=== PATIENT | female | born 1960 | race African-American/Black ===

== ENCOUNTER → 2017-11-01 | Outpatient (CLI) | payer OTHER ==
[2014-06-08 11:05] VITALS: BP 124/83
[~2017-11-01] MED LIST: ALEN70TA5 PO; CLON0.1T PO; CYANOCOBALAMIN PO; ERGO500027 PO; GABA-586 PO; HYDR25TA9 PO; MELO15TA23 PO; MULT1TAB52 PO; OXYC-323 PO; POTA10TA12 PO; TRAM50TA PO
--- NOTE | 2017-11-01 14:26 | PAIN ---
DATE OF SERVICE: 11/01/2017 PROGRESS NOTE FOR PAIN CLINIC DIAGNOSIS: Lumbar radiculopathy with lumbar degenerative disk disease. HISTORY OF PRESENT ILLNESS: The patient is a 57-year-old female who returns for followup, last seen in 04/2015. The patient did very well with lumbar epidural steroid injections with about an 80% improvement at that time. The patient reports pain is returning now in the low back and is primarily in the left lower extremity, but also in the right lower extremity at times, mostly in the posterior gluteus, posterior lateral thigh, lateral anterior thigh, lateral anterior lower legs bilaterally. The patient reports it is a 10 on a scale of 10 at its worst, 7-8 on its average, 3-4 at its least and is a 7 today. The patient reports it is radiating, constant, cramping, aching, sharp, tight, becoming more severe, more unbearable, and worse with walking, standing and changing positions, awakens her from sleep about 3-4 times at night. The patient reports it is becoming more noticeable over the past 2-3 months to the point where she is unable to get it to go away with resting and stretching. The patient did have some physical therapy exercises. She is doing some traction with physical therapy, which is helping while she is doing it, but afterwards, the pain returns fairly quickly within a day or so. The patient reports no new motor or sensory deficits, no new bowel or bladder incontinence or other complaints. PHYSICAL EXAMINATION: VITAL SIGNS: The patient's blood pressure is 150/89, pulse 68, respirations 18, temperature 97.7 degrees Fahrenheit, height is 5 feet 5 inches, weighs 209 pounds. GENERAL: The patient is awake, alert, oriented, appropriate, very pleasant demeanor. HEENT: Head shows normocephalic, atraumatic. Extraocular movements are intact and symmetrical. The patient wears eyeglasses. Oral cavity: Mucous membranes are moist and pink. Dentition is intact. NECK: Shows anterior throat supple without palpable lymphadenopathy noted. Swallow reflex is symmetrical. CHEST: Shows normal on inspection. Breath sounds are clear to auscultation bilaterally. HEART: Shows S1, S2 clear. No murmurs auscultated. ABDOMEN: Soft, nontender, nondistended. No palpable organomegaly is noted. No rebound or guarding demonstrated. BACK: Shows spine grossly in the midline. Normal appearing thoracic kyphosis and mild flattening of lumbar lordotic curvature. Lumbar paraspinous muscle shows symmetrical on inspection. On palpation, some moderate tenderness diffusely bilaterally without radiation. The patient has good rotational motion of lumbar spine, both laterally as well as extension and flexion without difficulty. No tenderness over the sacrum or sacroiliac regions over the spinous processes. EXTREMITIES: Lower extremities show deep tendon reflexes 1+ in the patellar and tendo calcaneus tendons, are equal. Motor exam is approximately 4 on a scale of 5 on the right and 5/5 on the left. Peripheral pulses are 1+ posterior tibia. No peripheral edema is noted. Options were discussed with the patient. The patient's old chart was reviewed as her current medication regimen updated. Current review of systems updated today as well. She does have an MRI scan from 2014 showing some significant findings at L4-L5 and L5-S1 with diffuse disk bulging and neural foraminal encroachment. The patient responded very well to lumbar epidural steroid injection in 04/2015. We discussed interventional techniques. She would like to pursue interventional techniques as we discussed a lumbar epidural steroid injection using descriptions as well as anatomical models to describe the procedure. The patient is in a [place] to visit her son who is having a bronchoscopy later today and would like to get to the facility where he is having this done as quickly as possible. We will have her reschedule in approximately 1 week and return for lumbar epidural steroid injection at that time. In the meantime, we prescribed a Medrol Dosepak and she was given instructions as well as side effects to be aware of with the medication and we will follow up in approximately 1 week and plan on lumbar epidural steroid injection on return. TROY CINTRON MD DR: JENNIFER/mayelin JOB#: [id number] / [id number]
== END | disposition home or self-care (01) ==
LOC: PNCL 10:03
PROVIDERS: ATTEND Anesthesiology
DX: M51.16 Intervertebral disc disorders with radiculopathy, lumbar region (principal); Z90.710 Acquired absence of both cervix and uterus; Z83.3 Family history of diabetes mellitus
CPT/HCPCS: 99212

== ENCOUNTER → 2017-11-16 | Outpatient (CLI) | payer OTHER ==
[2014-06-08 11:05] VITALS: BP 124/83
[~2017-11-16] MED LIST changes: +IOHEXOL 180 MG/ML 10 ML VIAL. ONE; +LIDOCAINE 2% PF 2ML VIAL. ONE; +MAGN400C PO; +VITAMIN B; +methylPREDNISolone ACETATE 40 MG/ML VIAL. ONE; +methylPREDNISolone ACETATE 80 MG/ML VIAL. ONE
--- NOTE | 2017-11-16 13:04 | PAIN ---
DATE OF SERVICE: 11/16/2017 PROGRESS NOTE FOR PAIN CLINIC DIAGNOSES: Lumbar radiculopathy with lumbar degenerative disk disease. HISTORY OF PRESENT ILLNESS: The patient is a 57-year-old female who returns for followup status post previous evaluation and returns today for lumbar epidural steroid injection. We tried Medrol Dosepak with her. She reports did help while she was taking it by about 80%, but wore off after about 4 days following the completion of it. The patient reports still pain in the low back and now into the left lower extremity, mostly in the posterior lateral gluteus, posterior thigh, lateral thigh, anterior thigh and also into the right lateral thigh. The patient reports it is an 8 on a scale of 10 at its worst, 6 on average, 5 at its least. She describes the pain as aching, sharp, tight, constant, becoming more severe, more unbearable, worse with weightbearing, changing positions, standing and walking. The patient reports it does not usually wake her up from sleep at night and she sleeps only about 4 to 5 hours at a time. The patient reports no new motor or sensory deficits, no new bowel or bladder incontinence or other complaints. PHYSICAL EXAMINATION: VITAL SIGNS: The patient's blood pressure 120/87, pulse 61, respirations 16, temperature 97.9 degrees Fahrenheit, weight is 205 pounds. GENERAL: The patient is awake, alert, oriented, appropriate, very pleasant demeanor. HEENT: Head shows normocephalic and atraumatic. Extraocular movements are intact and symmetrical. Oral cavity: Mucous membranes are moist and pink. Dentition is intact. NECK: Shows anterior throat is supple without palpable lymphadenopathy noted. Swallow reflex symmetrical. CHEST: Shows normal with inspection. Breath sounds are clear to auscultation bilaterally. HEART: Shows S1 and S2 clear. No murmurs are auscultated. ABDOMEN: Soft, nontender and nondistended. No palpable organomegaly is noted. No rebound or guarding demonstrated. BACK: Shows spine grossly in the midline. Normal appearing thoracic kyphosis and some mild flattening of the lumbar lordotic curvature. Lumbar paraspinous muscle shows symmetrical on inspection. With palpation shows some moderate tenderness only diffusely without radiation. The patient has good rotational motion of the lumbar spine both laterally as well as extension and flexion without difficulty. EXTREMITIES: Lower extremities show deep tendon reflexes at 1+ in the patellar and tendo calcaneus tendons are equal. Motor exam is approximately 4 on a scale of 5 with right dorsiflexion and extension and 5/5 on the left. Peripheral pulses are 1+ posterior tibial. No peripheral edema is noted bilaterally. Options were discussed with the patient. The patient's old chart was reviewed as was her current medication regimen updated. Current review of systems updated today as well. We will proceed with a lumbar epidural steroid injection today with fluoroscopic guidance. Risks were again discussed including, but not limited to bleeding, infection, possibility of epidural hematoma, subsequent neurologic compromise, dural puncture, headaches, spinal cord and/or nerve damage, side effects of steroid medication and poor results regarding pain control. The patient understands and wished to proceed. The patient will return to the clinic in approximately 2 weeks for followup, was counseled as to return appointment, activity level and side effects to be aware of. DIAGNOSIS: Lumbar radiculopathy with lumbar degenerative disk disease. PROCEDURE: Lumbar epidural steroid injection, translaminar approach L4-L5 level using C-arm fluoroscopic guidance under sterile prep and drape using local anesthetic. MEDICATION INJECTED: A total of 120 mg Depo-Medrol plus 10 mL of preservative-free normal saline and 2 mL of Isovue for contrast. CONDITION AT DISCHARGE: Stable. The patient tolerated the procedure well and had no complications. TROY CINTRON MD DR: JENNIFER/mayelin JOB#: [id number] / [id number]
== END | disposition home or self-care (01) ==
LOC: PNCL 10:41
PROVIDERS: ATTEND Anesthesiology
DX: M51.16 Intervertebral disc disorders with radiculopathy, lumbar region (principal); Z88.8 Allergy status to other drugs, medicaments and biological substances
CPT/HCPCS: 62323; J1030; J1040; J2001; Q9965

== ENCOUNTER → 2017-12-03 | Outpatient (CLI) | payer OTHER ==
[2014-06-08 11:05] VITALS: BP 124/83
[~2017-12-03] MED LIST changes: +LIDOCAINE 1% PF 2 ML VIAL. ONE; -LIDOCAINE 2% PF 2ML VIAL. ONE
--- NOTE | 2017-12-03 23:11 | PAIN ---
DATE OF SERVICE: 12/03/2017 DIAGNOSES: Lumbar radiculopathy with lumbar degenerative disk disease. HISTORY OF PRESENT ILLNESS: The patient is a 57-year-old female who returns for followup status post lumbar epidural steroid injection x 1. The patient reports about 80% improvement for the first 2 weeks or so. Pain began to return last week, but only very minimally in the low back and the bilateral lower extremities. The patient reports mainly the back is giving some trouble, slightly worse on the left than the right going to the left lower leg as well as some radiation in the anterior lower leg and ankle and foot. The patient reports the pain is a 10 on scale of 10 at its worst, 5-6 on average, 3-4 at its least and is a 4 today. The patient reports it is achy, sharp, tight, dull, alternating tingling, stabbing in the left leg radiating, becoming more constant with time or standing, walking, changing positions, better with sitting or lying down, does not awaken her from sleep at night, does not bother when she is sitting even for a prolonged period. The patient reports no new motor or sensory deficits, no new bowel or bladder incontinence or other complaints. PHYSICAL EXAMINATION: VITAL SIGNS: Today, blood pressure is 131/79, pulse 61, respirations 18, temperature 97.9 degrees Fahrenheit, height is 5 feet 5 inches, weight is 206 pounds. GENERAL: The patient is awake, alert, oriented, appropriate, very pleasant demeanor. HEENT: Head is normocephalic, atraumatic. Extraocular muscles are intact and symmetrical. Oral cavity: Mucous membranes moist and pink. Dentition is intact. NECK: Shows anterior throat supple without palpable lymphadenopathy noted. Swallow reflex symmetrical. CHEST: Shows normal with inspection. Breath sounds clear to auscultation bilaterally. HEART: Shows S1, S2 clear. No murmurs auscultated. ABDOMEN: Soft, nontender, nondistended. No palpable organomegaly is noted. No rebound or guarding demonstrated. BACK: Shows spine grossly in the midline. Normal appearing thoracic kyphosis and some minor flattening of lumbar lordotic curvature. Lumbar paraspinous muscle shows symmetrical on inspection, on palpation shows some mild tenderness diffusely bilaterally in the lower lumbar distribution but only diffusely. The patient has good rotational motion of lumbar spine, both laterally as well as extension and flexion without difficulty or pain reported. No tenderness over the sacrum or sacroiliac regions. EXTREMITIES: Lower extremities show deep tendon reflexes 1+ in the patellar and tendo-calcaneus tendons. Motor exam is approximately 4 on a scale of 5 on the right, 5/5 on the left. Peripheral pulses are 1+ posterior tibia. No peripheral edema is noted. Options were discussed with the patient. The patient's old chart was reviewed as well as his current medication regimen updated. Current review of systems updated today as well. We will proceed with a second in the series of lumbar epidural steroid injection today with fluoroscopic guidance. Risks were again discussed including, but not limited to bleeding, infection, possibility of epidural hematoma, subsequent neurological compromise, dural puncture, headaches, spinal cord and/or nerve damage, side effects of steroid medication and poor results regarding pain control. The patient understands and wished to proceed. The patient will return to clinic in approximately 2 weeks for followup. She was counseled on return appointment, activity level and side effects to be aware of. DIAGNOSES: Lumbar radiculopathy with lumbar degenerative disk disease. PROCEDURE: Lumbar epidural steroid injection, translaminar approach L4-L5 level using C-arm fluoroscopic guidance under sterile prep and drape using local anesthetic. MEDICATION INJECTED: A total of 120 mg Depo-Medrol plus 10 mL of preservative-free normal saline and 2 mL of Isovue for contrast. CONDITION AT DISCHARGE: Stable. The patient tolerated procedure well, had no complications. TROY CINTRON MD DR: JENNIFER/mayelin JOB#: [id number] / [id number]
== END | disposition home or self-care (01) ==
LOC: PNCL 10:13
PROVIDERS: ATTEND Anesthesiology
DX: M51.16 Intervertebral disc disorders with radiculopathy, lumbar region (principal); Z88.8 Allergy status to other drugs, medicaments and biological substances
CPT/HCPCS: 62323; J1030; J1040; Q9965

== ENCOUNTER → 2019-09-25 | Outpatient (CLI) | payer OTHER ==
[2014-06-08 11:05] VITALS: BP 124/83
[~2019-09-25] MED LIST changes: +ACET325T21 PO; -ALEN70TA5 PO; +ALEN70TA6 PO; +ASPI-630 PO; +DICL100G54 TP; -GABA-586 PO; +GABA300C18 PO; +HYDR-2145 PO; -HYDR25TA9 PO; -LIDOCAINE 1% PF 2 ML VIAL. ONE; +MULT-445 PO; -MULT1TAB52 PO; -OXYC-323 PO; +OXYC1TAB15 PO; -POTA10TA12 PO; +POTA20TA4 PO; +POTASSIUM CHLO10 ME1 PO; +black seed oil
--- NOTE | 2019-09-25 09:56 | PDOC ---
Progress Note - Pain Clinic Date of Service: DOS: DATE: 09/25/19 TIME: 09:50 Diagnosis: Dx: Lumbar disc left with lumbar degenerative disc disease History or Present Illness: HPI: Mrs. Fredo Harris a 5-year-old female turns follow-up status post lumbar procedure injection last seen December 03, 2017 with good results about 75 to 80% improvement but the pain only lasting for about 1 to 2 months. Patient reports pain is returning now over the past 6 months or so after she was traveling on a missionary trip pain began return in the low back and left lower extremity most in the posterior gluteus posterior lateral thigh and anterior thigh and calf occasionally. Patient reports the pain is worse with walking standing change positions also with colder weather it is been more noticeable. Patient rates her pain as a 9 on a scale of 10 is worst 8 on average 5 at its least and is a 5 today patient reports is in the low back rating the left lower extremities noted described as constant severe at times unbearable stabbing tight in the back as well worse with rotation of motion extension lumbar spine as well as with walking standing changing positions awaken her from sleep about every 6 hours. Patient reports no new motor or sensory deficits no new bowel or bladder incontinence or other complaints. She did have a new MRI scan lumbar spine dated April 10, 2019 showing hypertrophic degenerative facet changes at L5-S1 mild thickening ligamentum flavum and symmetric bulging of the annulus L4-5 and symmetric bulging broad-based of the disc at L5-S1. Patient reports no new motor or sensory deficits no new bowel or bladder incontinence or other complaints. Physical Exam: VS: Blood pressure 147/91 pulse 71 respiration 16 temperature is 98.0 degrees urine fight is 5 foot 5 and half inches weight is 206 pounds PE: PHYSICAL EXAMINATION: GENERAL: The patient is awake, alert, oriented, appropriate, very pleasant demeanor HEENT: Shows normocephalic, atraumatic. Extraocular movements are intact and symmetrical. Oral cavity: Mucous membranes moist and pink. Dentition is intact. NECK: Shows anterior throat supple without palpable lymphadenopathy noted. Swallow reflex symmetrical. CHEST: Shows normal on inspection. Breath sounds are clear bilaterally. HEART: Shows S1, S2 clear. No murmurs auscultated. ABDOMEN: Soft, nontender, nondistended. No palpable organomegaly is noted. No rebound or guarding demonstrated. BACK: Shows spine grossly in the midline. Normal-appearing cervical lordotic curvature. There is slightly increased thoracic kyphosis, some minor flattening of the lumbar lordotic curvature. Lumbar paraspinous muscles show symmetrical on inspection, on palpation shows some moderate tenderness diffusely throughout the upper, middle and lower distribution of the paraspinous muscles bilaterally, but without specific trigger points, without radiation of pain. The patient has good rotational motion of the lumbar spine, both laterally as well as extension and flexion without significant difficulty. No tenderness over the spinous processes, sacrum or sacroiliac regions. EXTREMITIES: Lower extremities show deep tendon reflexes 1+ in the patellar and tendo calcaneus tendons. Motor exam is 4 on a scale of 5 with right dorsiflexion, extension, quadriceps and hamstring flexion and 5/5 on the left. Peripheral pulses are 1+ posterior tibial. No peripheral edema is noted b ilaterally. Lower extremities are warm and dry to touch, equal in color and appearance. Straight leg raise noted to be positive on the right about 35 degrees, left side is negative. Gaenslen's and Too's maneuvers are negative as well. The patient is able to stand stand on her toes walks with a slight favoring gait favoring the right lower extremity but not use any assistive devices to ambulate.. SKIN: Shows warm and dry, good turgor. No edema. No sores, rashes or bruising throughout. Options were discussed with the patient. The patient's old chart was reviewed and current medication regimen updated. [] Procedure: Procedure: Options were discussed with the patient. Patient's old chart was reviewed her current medication regimen updated current review of systems updated today as well and we will proceed with the lumbar epidural steroid injection. Risks are discussed including but not limited to bleeding infection possibility of epidural hematoma and subsequent neurological compromise dural puncture headache spinal cord and or nerve damage side effects of steroid medication importance of going pain control. Patient understands wishes to proceed. Patient return to clinic in approximately 2 weeks for follow-up. Procedure is lumbar epidural steroid injection under local anesthetic using sterile prep and drape at the L4-5 level using C-arm fluoroscopic guidance in both AP and lateral views medications injected is 120 mg Depo-Medrol +[]mL preservative-free normal saline and 2 mL Isovue for contrast- condition at discharge is stable patient tolerated procedure well had no complications. Medication Injected: Med Injected: 10 cc preservative-free normal saline +120 mg Depo-Medrol +2 cc contrast Condition at Discharge: Condition at Discharge: Patient tolerated procedure well had no complications. TROY CINTRON MD Sep 25, 2019 09:56
== END | disposition home or self-care (01) ==
LOC: PNCL 08:49
PROVIDERS: ATTEND Anesthesiology
DX: M51.16 Intervertebral disc disorders with radiculopathy, lumbar region (principal); Z79.82 Long term (current) use of aspirin; Z79.899 Other long term (current) drug therapy; Z88.8 Allergy status to other drugs, medicaments and biological substances
CPT/HCPCS: 62323; J1030; J1040; Q9965

== ENCOUNTER → 2019-10-09 | Outpatient (CLI) | payer OTHER ==
[2014-06-08 11:05] VITALS: BP 124/83
--- NOTE | 2019-10-09 09:40 | PDOC ---
Progress Note - Pain Clinic Date of Service: DOS: DATE: 10/09/19 TIME: 09:37 Diagnosis: Dx: Lumbar radiculopathy with lumbar degenerative disc disease and lumbar spondylosis History or Present Illness: HPI: 59-year-old female returns to follow-up status post lumbar epidural steroid injection x1 patient reports only about 20% improvement in her low back and left lower extremity pain. Patient reports pain is still across the low back into the left leg posterior gluteus lateral thigh anterior thigh medial thigh mostly across the back however patient which is aching and tingling constant can be unbearable at times worse with standing walking changing positions rates the pain is a 9 on scale 10 is worse over the past week 6 on average 6 at its least is a 6 today patient reports no new motor or sensory deficits no new bowel or bladder incontinence or other complaints. Patient ports been awakened from sl eep at night also has secondary complaint of right shoulder pain at the acromioclavicular joint worse with sleeping over the past 3 days. Physical Exam: VS: Blood pressure is 151/92 pulse 63 respirations 18 temperature 98.4 F weight is 207 pounds PE: PHYSICAL EXAMINATION: GENERAL: The patient is awake, alert, oriented, appropriate, very pleasant demeanor HEENT: Shows normocephalic, atraumatic. Extraocular movements are intact and symmetrical. Oral cavity: Mucous membranes moist and pink. NECK: Shows anterior throat supple without palpable lymphadenopathy noted. Swallow reflex symmetrical. CHEST: Shows normal on inspection. Breath sounds are clear bilaterally. HEART: Shows S1, S2 clear. No murmurs auscultated. ABDOMEN: Soft, nontender, nondistended. No palpable organomegaly is noted. No rebound or guarding demonstrated. BACK: Shows spine grossly in the midline. Normal-appearing cervical lordotic curvature. There is slightly increased thoracic kyphosis, some minor flattening of the lumbar lordotic curvature. Lumbar paraspinous muscles show symmetrical on inspection, on palpation shows some moderate tenderness diffusely throughout the upper, middle and lower distribution of the paraspinous muscles bilaterally without specific trigger points, without radiation of pain. The patient has good rotational motion of the lumbar spine, both laterally as well as extension and flexion without significant difficulty. No tenderness over the spinous processes, sacrum or sacroiliac regions. EXTREMITIES: Lower extremities show deep tendon reflexes 1+ in the patellar and tendo calcaneus tendons. Motor exam is 4 on a scale of 5 with right dorsiflexion, extension, quadriceps and hamstring flexion and 5/5 on the left. Peripheral pulses are 1+ posterior tibial. No peripheral edema is noted bilaterally. Lower extremities are warm and dry to touch, equal in color and appearance. SKIN: Shows warm and dry, good turgor. No edema. No sores, rashes or bruising throughout. Procedure: Procedure: Options discussed with the patient. Patient chart was reviewed as her current medication regimen updated current review of systems updated today as well. We will proceed with a second series lumbar epidural steroid injection today with fluoroscopic guidance risks again discussed including but not limited to bleeding infection possibility of epidural hematoma and subsequent neurological compromise dural puncture headache spinal cord and/or nerve damage side effects of steroid medication and portals chronic pain control. Patient understands wished to proceed. Patient return to clinic in approximately 2 weeks for follow-up was counseled as to return appointment activity level and side effects be aware. Patient also encouraged to try the Voltaren gel on her right acromioclavicular joint. Medication Injected: Med Injected: Procedure is lumbar epidural steroid injection under local anesthetic using sterile prep and drape at the L4-5 level using C-arm fluoroscopic guidance in both AP and lateral views medications injected is 120 mg Depo-Medrol + 10 mL preservative-free normal saline and 2 mL contrast- condition at discharge is stable patient tolerated procedure well had no complications. Condition at Discharge: Condition at Discharge: Condition at discharge stable, patient tolerated procedure well had no complications. TROY CINTRON MD Oct 09, 2019 09:40
== END | disposition home or self-care (01) ==
LOC: PNCL 08:50
PROVIDERS: ATTEND Anesthesiology
DX: M51.16 Intervertebral disc disorders with radiculopathy, lumbar region (principal); M47.896 Other spondylosis, lumbar region; Z88.8 Allergy status to other drugs, medicaments and biological substances; Z79.82 Long term (current) use of aspirin; Z79.899 Other long term (current) drug therapy
CPT/HCPCS: 62323; J1030; J1040; Q9965